=== PATIENT | female | born 1960 | race Caucasian/White ===

== ENCOUNTER 2017-10-06 14:17 | Emergency (ER) | payer OTHER ==
[~2017-10-06] VITALS: Ht 167.6 cm; Wt 61.2 kg
[~2017-10-06 14:17] MED LIST: AMLODIPINE BESY PO; ANUSOL HC-HEMOR1 SUP RC; ESCITALOPRAM10 MG PO; MULTIVITAMIN1 TAB PO
[2017-10-06 14:51] LABS: ABSOLUTE BASOPHIL COUNT 0 /CUMM (0.0-0.2); ABSOLUTE EOSINOPHIL COUNT 0.1 /CUMM (0.0-0.7); MEAN CORPUSCULAR HGB CONC 33.3 G/DL (33.0-37.0); MEAN PLATELET VOLUME 7.8 FL (7.4-10.4)
[2017-10-06 14:55] LABS: ABSOLUTE GRANULOCYTE CT 3.8 /CUMM (1.4-6.5); ABSOLUTE LYMPH COUNT 1.4 /CUMM (1.2-3.4); ABSOLUTE MONOCYTE COUNT 0.5 /CUMM (0.10-0.60); BASOPHIL % 0.2 % (0.0-2.0); EOSINOPHIL % 1.3 % (0-5); GRANULOCYTE % 65.6 % (42.2-75.2); HEMATOCRIT 42.6 % (37-47); MEAN CORPUSCULAR HGB 32.2 PG (27.0-31.0); MEAN CORPUSCULAR VOLUME 96.9 FL (81.0-99.0); PLATELET COUNT 318 /CUMM (130-400); RBC DISTRIBUTION WIDTH 14.1 % (11.5-14.5); RED BLOOD CELL CT 4.39 /CUMM (4.20-5.40); WHITE BLOOD CELL COUNT 5.7 /CUMM (4.8-10.8)
--- NOTE | 2017-10-06 18:44 | ED GI/GU/ABDOMINAL COMPLAINT ---
History of Present Illness General Chief Complaint: Dyspnea (COPD, CHF, Other) Stated Complaint: BIAB SOB, ETOH Source: patient, old records Exam Limitations: no limitations Vital Signs & Intake/Output Vital Signs & Intake/Output Vital Signs Date Time Temp Pulse Resp B/P B/P Pulse O2 O2 Flow FiO2 Mean Ox Delivery Rate 10/06 2138 98.5 89 18 131/84 97 Room Air Room Air 10/06 2020 98.5 92 18 136/82 97 Room Air 10/06 1441 98.2 102 16 132/88 95 Room Air ED Intake and Output 10/07 0000 10/06 1200 Intake Total 1000 Output Total Balance 1000 Intake, IV 1000 Patient 135 lb Weight Weight Estimated Measurement Method Allergies Coded Allergies: NO KNOWN ALLERGIES (10/06/17) Reconcile Medications AMLODIPINE BESYLATE/BENAZEPRIL (Amlodipine-Benazepril 5-10 MG) 5 MG-10 MG CAPSULE 1 CAP PO DAILY BP (Reported) Anusol Hc (Anusol Hc-Hemorrhoidal Hc Supp) 1 SUP SUP 1 SUP RC BID PRN hemorrhoids Escitalopram Oxalate 10 MG TABLET 1 TAB PO DAILY MENTAL HEALTH (Reported) Multivitamin (Multiple Vitamins) 1 EACH TABLET 1 TAB PO DAILY SUPPLEMENT ( Reported) Triage Note: PT WAS BIBA FROM HOME AFTER BEING FOUND ON THE FLOOR. PT BEGAN WHEEZING FROM HER THROAT SPOUSE CALLED 911. PT HAD A FEW COCKTAILES, PT DENIES DRINKING TODAY. PT TALKING IN FULL SENTENCES NO NO RESP. DISTRESS NOTED WHILE IN TRIAGE. PT DENIES ANY INJURY FROM FALL. PT HAS BEEN OUT OF WORK FOR 2 DAYS FOR STOMACH AND BACK PAIN . Triage Nurses Notes Reviewed? yes ? n Is pt currently ? No Onset: Abrupt Duration: day(s): (1), better, resolved prior to arrival Timing: recent history Quality/Severity: aching, moderate, sharpness Severity Numbers: 5 Location: epigastric Radiation: back Activities at Onset: none Prior Abdominal Problems: similar symptoms No Modifying Factors: none Associated Symptoms: denies HPI: 57-year-old female history of alcohol abuse hypertension presents with her family after she was found on the ground after a mechanical fall. The patient admits to drinking wine last night into today. On arrival she appears intoxicated. She denies any complaints from the fall. She denies prodromal dizziness light tenderness prior to the fall. Her only complaint in triage where she is having epigastric pain radiating into her back which she has had episodes of over the past several weeks. She denies any associated chest pain shortness of breath cough. Her states that she was wheezing in her throat when they found her on the ground however is not had any episodes since. She denies any drug use. She denies any other drugs. Her only abdominal surgeries is sig For a ovarian cyst removal No nausea no vomiting no diarrhea no black or bloody stools. Symptoms are not worse with drinking. She denies history of severe alcohol withdrawal, DTs hallucinations in the past she states she is not here for detox (Jose Miguel Melgar) Past History Travel History Traveled to [place] past 21 day No Medical History Any Pertinent Medical History? see below for history Cardiovascular: hypertension Psychiatric: alcohol dependence Surgical History Surgical History: appendectomy, cholecystectomy, hysterectomy, 3 DISCS REMOVED FROM NECK Psychosocial History Who do you live with Significant Other What is your primary language Cypriot Tobacco Use: Current Daily Use Daily Tobacco Use Amount/Type: => 5 Cigarettes daily ETOH Use: alcoholic Illicit Drug Use: denies illicit drug use Family History Hx Contributory? No (Jose Miguel Melgar) Review of Systems Review of Systems Constitutional: Reports: see HPI. Comments Review of systems: See HPI, All other systems negative. Constitutional, no chills no fever, HEENT: no sore throat no congestion Cardiovascular: No chest pain Skin: no rashes, no change in skin Respiratory: No dyspnea no cough no sputum GI: nausea no vomiting, no diarrhea Muscle skeletal: No joint pain, no back pain, no neck pain, Neurologic: , no headache Psych: No stress Heme/endocrine: No bruising Immunology: No lymphadenopathy (Jose Miguel Melgar) Physical Exam Physical Exam General Appearance: well developed/nourished, alert, awake Gastrointestinal: soft, non-tender Comments: Well-developed well-nourished person in no acute distress HEENT: Normal EENT exam; PERRL, EOMI, HEAD is atraumatic. moist mucous membranes. Neck: Supple, normal range of motion Back: Nontender, no CVA tenderness. Full range of motion Cardiovascular: Regular rate and rhythms no murmurs rub Respiratory: Chest nontender.There were no bony deformities, no asymmetry. No respiratory distress. Patient speaking in full complete sentences. Breath sounds clear to auscultation bilaterally: NO W/R/R Abdomen: Soft, nontender nondistended, no appreciable organomegaly. Normal bowel sounds. No rebound/guarding, No appreciable enlargement of the abdominal aorta, No ascites. Extremity: No edema, full range of motion of extremities Neuro: Alert oriented x3, motor sensory normal, There were no obvious focal neurologic abnormalities. Skin: No appreciable rash on exposed skin, skin is warm and dry. Psych: Mood and affect is normal, memory and judgment is normal. Core Measures ACS in differential dx? Yes Sepsis Present: No Sepsis Focused Exam Completed? No (Mandi TURNER,Jose Miguel) Progress Differential Diagnosis: appendicitis, biliary colic, bowel obstruction, colon cancer, inflamm bowel dis, pancreatitis, peptic ulcer, PUD/GERD, perforated viscous, SBO Plan of Care: Orders Procedure Date/time Status EKG 10/06 2006 Active Add-on Test (ER Only) 10/06 184 Active Add-on Test (ER Only) 10/06 144 Active TROPONIN LEVEL 10/06 1443 Complete LIPASE 10/06 1443 Complete AMYLASE 10/06 1443 Complete ETHANOL 10/06 1442 Complete COMPREHENSIVE METABOLIC PANEL 10/06 1442 Complete CBC WITHOUT DIFFERENTIAL 10/06 1442 Complete Laboratory Tests 10/06/17 1443: Anion Gap 19 H, Estimated GFR > 60, BUN/Creatinine Ratio 26.0 H, Glucose 104 H, Calcium 10.2, Total Bilirubin 0.7, AST 42 H, ALT 36, Alkaline Phosphatase 54 , Troponin I < 0.01, Total Protein 7.7, Albumin 5.0, Globulin 2.7, Albumin/ Globulin Ratio 1.9, Amylase 147 H, Lipase 383 H, CBC w Diff NO MAN DIFF REQ, RBC 4.39, MCV 96.9, MCH 32.2 H, MCHC 33.3, RDW 14.1, MPV 7.8, Gran % 65.6, Lymphocytes % 24.9, Monocytes % 8.0, Eosinophils % 1.3, Basophils % 0.2, Absolute Granulocytes 3.8, Absolute Lymphocytes 1.4, Absolute Monocytes 0.5, Absolute Eosinophils 0.1, Absolute Basophils 0, Serum Alcohol 363.0 Patient denies any complaints including pain nausea at this time I discussed with her and her family her lab results, the patient is declining wishing to go through detox she denies history of severe alcohol withdrawal, DTs in the past discussed with them given her elevated lipase and history of epigastric pain we' ll get a CAT scan to rule out pancreatitis which are with plan 10/06/2017 9:47:41 PM I discussed with the patient her CAT scan findings incidental findings on CT she is scheduled to follow up with GI Dr. Lugo. Return precautions were discussed at late patient is been asymptomatic here denies any pain. She again is declining alcohol detox. Discussed with her hard alcohol abuse. Her will take her home. Return precautions were discussed at length they feel comfortable with plan Diagnostic Imaging: Viewed by Me: CT Scan. Discussed w/RAD: CT Scan. Radiology Impression: PATIENT: JUDY VALLADARES PRESENT AGE: 57 PATIENT ACCOUNT NO: [id number] : 56 LOCATION: [facility] ORDERING PHYSICIAN: Jose Miguel TURNER SERVICE DATE: 10/06/17 EXAM TYPE: CAT - CT HEAD WO IV CONTRAST EXAMINATION: CT HEAD WITHOUT CONTRAST CLINICAL INFORMATION: Fall. Rule out intracranial hemorrhage. COMPARISON: Head CT from . TECHNIQUE: Contiguous axial imaging was performed from the skull base to vertex without intravenous administration of contrast. DLP: 647.9 mGy-cm FINDINGS: There is no evidence of acute intracranial hemorrhage or territorial infarction. No abnormal mass effect or midline shift is seen. Flores to white matter differentiation is well preserved. No extra-axial fluid collections are identified. The ventricles are normal in size. Mild chronic white matter microangiopathic changes are noted. There is generalized parenchymal volume loss greater than expected for patient age. The osseous structures and soft tissues are normal. The mastoid air cells and visualized portions of the paranasal sinuses are well aerated. IMPRESSION: No acute intracranial hemorrhage or territorial infarction. Mild chronic white matter microangiopathy with moderate parenchymal volume loss for patient age. DICTATED BY: Antonio Garces MD DATE/ TIME DICTATED:10/06/172040 NURSING CARE ATTENDANT:ARRON DATE/TIME TRANSCRIBED: 10/06/172040 CONFIDENTIAL, DO NOT COPY WITHOUT APPROPRIATE AUTHORIZATION. < Electronically signed in Other Vendor System> SIGNED BY: Antonio Garces MD 10/06/172045, PATIENT: JUDY VALLADARES PRESENT AGE: 57 PATIENT ACCOUNT NO: [id number] : 56 LOCATION: [facility] ORDERING PHYSICIAN: Jose Miguel TURNER SERVICE DATE: 10/06/17 EXAM TYPE: CAT - CT ABD & PELVIS W IV CONTRAST EXAMINATION: CT ABDOMEN AND PELVIS WITH CONTRAST CLINICAL INFORMATION: 57-year-old female patient with EtOH abuse. Abdominal pain in the epigastrium. COMPARISON: None TECHNIQUE: Multidetector volumetric imaging was performed of the abdomen and pelvis following IV administration of 95 mL of Optiray 320 intravenous contrast. Sagittal and coronal reformatted images were obtained on the technologist's workstation. DLP: 243 mGy-cm FINDINGS: LUNG BASES: The visualized lung bases are unremarkable. LIVER, GALLBLADDER, AND BILIARY TREE: The liver is normal in size, shape, demonstrating diffuse fatty infiltration. No focal hepatic lesion or biliary ductal dilatation is present. The gallbladder has been surgically removed. PANCREAS: No focal swelling. No sign of peripancreatic effusions. SPLEEN: Unremarkable. ADRENAL GLANDS: Unremarkable. KIDNEYS AND URETERS: The kidneys are normal in size, shape, and attenuation. No hydronephrosis. No perinephric stranding. A nonobstructing punctate calculus is located in the lower pole of the right kidney. BLADDER: Unremarkable. GASTROINTESTINAL TRACT: The small and large bowel are unremarkable. The appendix may have been removed. An unusual calcified enterolith is located in the cecum. No free air or free fluid. ABDOMINAL WALL: No significant hernia is appreciated. LYMPH NODES: Normal. VASCULAR: Unremarkable. PELVIC VISCERA: Uterus has been removed. OSSEOUS STRUCTURES: Severe disc disease is seen at L5-S1. IMPRESSION: 1. No anatomic signs of pancreatitis. 2. Fatty liver. 3. Nonobstructing calculus lower pole right kidney. 4. Unusual enterolith the cecum. DICTATED BY: Alphonse Monsalve MD DATE/TIME DICTATED:10/06/172041 NURSING CARE ATTENDANT:ARRON DATE/TIME TRANSCRIBED:10/06/172041 CONFIDENTIAL, DO NOT COPY WITHOUT APPROPRIATE AUTHORIZATION. <Electronically signed in Other Vendor System> SIGNED BY: Alphonse Monsalve MD 10/06/172058 Initial ED EKG: normal intervals, normal p-waves, normal QRS complex, stach 100 (Mandi TURNER,Jose Miguel) Departure Departure Time of Disposition: 2116 Disposition: HOME OR SELF CARE Condition: Stable Clinical Impression Primary Impression: Abdominal pain Referrals: Kodi CARIAS,Jim Mayers MD,Johnny Kent (PCP/Family) Additional Instructions: Follow-up with key punch teacher urologist Dr. Lguo. Atkins diet and abstain from alcohol use. Return anytime sooner with any concerns. Departure Forms: Customer Survey General Discharge Information (Mandi TURNER,Jose Miguel) PA/EXAM PROCTOR Co-Sign Statement Statement: ED Attending supervision documentation- [] I saw and evaluated the patient. I have also reviewed all the pertinent lab results and diagnostic results. I agree with the findings and the plan of care as documented in the PA's/EXAM PROCTOR's documentation. [X] I have reviewed the ED Record and agree with the PA's/EXAM PROCTOR's documentation. [] Additions or exceptions (if any) to the PAs/EXAM PROCTOR's note and plan are summarized below: [] (Julian Estrada DO
--- NOTE | 2017-10-06 20:46 | CT SCAN REPORT ---
EXAMINATION: CT HEAD WITHOUT CONTRAST CLINICAL INFORMATION: Fall. Rule out intracranial hemorrhage. COMPARISON: Head CT from 10/05/2009. TECHNIQUE: Contiguous axial imaging was performed from the skull base to vertex without intravenous administration of contrast. DLP: 647.9 mGy-cm FINDINGS: There is no evidence of acute intracranial hemorrhage or territorial infarction. No abnormal mass effect or midline shift is seen. Flores to white matter differentiation is well preserved. No extra-axial fluid collections are identified. The ventricles are normal in size. Mild chronic white matter microangiopathic changes are noted. There is generalized parenchymal volume loss greater than expected for patient age. The osseous structures and soft tissues are normal. The mastoid air cells and visualized portions of the paranasal sinuses are well aerated. IMPRESSION: No acute intracranial hemorrhage or territorial infarction. Mild chronic white matter microangiopathy with moderate parenchymal volume loss for patient age.
--- NOTE | 2017-10-06 20:59 | CT SCAN REPORT ---
EXAMINATION: CT ABDOMEN AND PELVIS WITH CONTRAST CLINICAL INFORMATION: 57-year-old female patient with EtOH abuse. Abdominal pain in the epigastrium. COMPARISON: None TECHNIQUE: Multidetector volumetric imaging was performed of the abdomen and pelvis following IV administration of 95 mL of Optiray 320 intravenous contrast. Sagittal and coronal reformatted images were obtained on the technologist's workstation. DLP: 243 mGy-cm FINDINGS: LUNG BASES: The visualized lung bases are unremarkable. LIVER, GALLBLADDER, AND BILIARY TREE: The liver is normal in size, shape, demonstrating diffuse fatty infiltration. No focal hepatic lesion or biliary ductal dilatation is present. The gallbladder has been surgically removed. PANCREAS: No focal swelling. No sign of peripancreatic effusions. SPLEEN: Unremarkable. ADRENAL GLANDS: Unremarkable. KIDNEYS AND URETERS: The kidneys are normal in size, shape, and attenuation. No hydronephrosis. No perinephric stranding. A nonobstructing punctate calculus is located in the lower pole of the right kidney. BLADDER: Unremarkable. GASTROINTESTINAL TRACT: The small and large bowel are unremarkable. The appendix may have been removed. An unusual calcified enterolith is located in the cecum. No free air or free fluid. ABDOMINAL WALL: No significant hernia is appreciated. LYMPH NODES: Normal. VASCULAR: Unremarkable. PELVIC VISCERA: Uterus has been removed. OSSEOUS STRUCTURES: Severe disc disease is seen at L5-S1. IMPRESSION: 1. No anatomic signs of pancreatitis. 2. Fatty liver. 3. Nonobstructing calculus lower pole right kidney. 4. Unusual enterolith the cecum.
[2017-10-06 21:39] VITALS: BP 131/84
== END 2017-10-06 21:40 ==
LOC: ERH 14:17
PROVIDERS: Emergency Medicine
DX: R10.13 Epigastric pain (principal)
CPT/HCPCS: 74177; 96360; G0480

== ENCOUNTER 2018-02-06 20:44 | Emergency (ER) | payer OTHER ==
[~2018-02-06] VITALS: Ht 167.6 cm; Wt 57.2 kg
--- NOTE | 2018-02-06 21:10 | ED GENERAL ADULT ---
History of Present Illness General Chief Complaint: Facial or Head Injury Stated Complaint: LAC TO HEAD S/P FALL OVERRAILING, +ETOH Source: patient Exam Limitations: no limitations Vital Signs & Intake/Output Vital Signs & Intake/Output Vital Signs Date Time Temp Pulse Resp B/P B/P Pulse O2 O2 Flow FiO2 Mean Ox Delivery Rate 02/06 2300 98.4 110 16 116/80 95 Room Air 02/062 Room Air 02/06 2059 97.4 127 18 132/91 97 Room Air Allergies Coded Allergies: NO KNOWN ALLERGIES (10/06/17) Reconcile Medications AMLODIPINE BESYLATE/BENAZEPRIL (Amlodipine-Benazepril 5-10 MG) 5 MG-10 MG CAPSULE 1 CAP PO DAILY BP (Reported) Anusol Hc (Anusol Hc-Hemorrhoidal Hc Supp) 1 SUP SUP 1 SUP RC BID PRN hemorrhoids Escitalopram Oxalate 10 MG TABLET 1 TAB PO DAILY MENTAL HEALTH (Reported) Multivitamin (Multiple Vitamins) 1 EACH TABLET 1 TAB PO DAILY SUPPLEMENT ( Reported) Triage Note: PT FROM HOME C/O LAC TO RIGHT FOREHEAD 30 MINS PRIOR FROM FALL, HEAVY ETOH USE. PT ARRIVED WITH TO ER AFTER FALLING OFF PORCH STEPS AND HITTING HEAD, +HEADSTRIKE, UNKNOWN LOC. PT SLURRING SPEECH. HR ELEVATED 127. Triage Nurses Notes Reviewed? yes Onset: Abrupt Duration: hour(s): Timing: recent history HPI: 02/06/18 57-year-old female presents to the emergency department status post fall. The patient drank some wine and then fell over a railing and struck her head. She has a half inch irregular laceration to her right forehead. She also complains of a headache. She denies chest pain, abdominal pain, or other complaints. Past History Travel History Traveled to [place] past 21 day No Medical History Any Pertinent Medical History? see below for history Cardiovascular: hypertension Psychiatric: alcohol dependence Surgical History Surgical History: appendectomy, cholecystectomy, hysterectomy, 3 DISCS REMOVED FROM NECK Psychosocial History Who do you live with Significant Other What is your primary language Malay Tobacco Use: Current Daily Use Daily Tobacco Use Amount/Type: => 5 Cigarettes daily ETOH Use: alcoholic Illicit Drug Use: denies illicit drug use Family History Hx Contributory? No Review of Systems Review of Systems Constitutional: Denies: fever. EENTM: Denies: visual changes. Respiratory: Denies: short of breath. Cardiovascular: Denies: chest pain. GI: Denies: abdominal pain. Genitourinary: Reports: no symptoms. Musculoskeletal: Reports: no symptoms. Skin: Reports: see HPI. Neurological/Psychological: Reports: headache. Hematologic/Endocrine: Reports: bruising, bleeding. Immunologic/Allergic: Reports: no symptoms. Physical Exam Physical Exam General Appearance: well developed/nourished, alert Head: active bleeding Eyes: Bilateral: normal appearance, PERRL, EOMI. Ears, Nose, Throat: normal pharynx, normal ENT inspection Neck: normal inspection, supple, full range of motion Respiratory: normal breath sounds, chest non-tender, no respiratory distress Cardiovascular: regular rate/rhythm Peripheral Pulses: 4+ radial (R), 4+ radial (L) Gastrointestinal: soft, non-tender Back: normal inspection Extremities: normal inspection, normal range of motion Neurologic/Psych: no motor/sensory deficits, awake, alert, oriented x 3 Skin: intact, normal color, warm/dry Core Measures ACS in differential dx? No CVA/TIA Diagnosis: No Sepsis Present: No Sepsis Focused Exam Completed? No Progress Differential Diagnoses I considered the following diagnoses in my evaluation of the patient: [ Intracranial bleed, laceration, foreign body, neck injury] Plan of Care: Current Medications Sig/Soledad Start time Last Medication Dose Stop Time Status Admin Cephalexin 500 MG ONCE ONE 02/06 2300 UNVr 02/06 (Keflex 500MG Cap) 02/06 2301 2301 Initial ED EKG: none Departure Departure Disposition: HOME OR SELF CARE Condition: Stable Clinical Impression Primary Impression: Head injury Secondary Impressions: Laceration Referrals: Talib CARIAS,Johnny Kent (PCP/Family) Departure Forms: Customer Survey General Discharge Information Comments PATIENT: JUDY VALLADARES PRESENT AGE: 57 PATIENT ACCOUNT NO: [id number] : 56 LOCATION: [facility] ORDERING PHYSICIAN: Julian Estrada DO SERVICE DATE: 02/06/18 EXAM TYPE: CAT - CT CERV SPINE WO IV CONTRAST; CT HEAD WO IV CONTRAST EXAMINATIONS: CT HEAD WITHOUT CONTRAST AND CT CERVICAL SPINE WITHOUT CONTRAST CLINICAL INFORMATION: Fall, pain COMPARISON: CT 10/06/2017, cervical spine films 05/21/2010 TECHNIQUE: Contiguous helical images of the brain were obtained without IV contrast. Contiguous helical images of the cervical spine were obtained without IV contrast. Multiplanar reconstructions were performed. DLP: 1348 mGy-cm FINDINGS: The study is mildly limited by patient motion. There are no pathologic extra-axial fluid collections. The lateral, third, fourth ventricles are mildly prominent and concordant with the appearance of the sulci. There is no evidence for acute intraparenchymal hemorrhage or infarct. There is moderate low-attenuation within the periventricular and subcortical white matter. There is neither mass nor mass effect. There is no shift of midline structures. The paranasal sinuses and mastoid air cells are clear. There are no osseous lesions. There is no prevertebral soft tissue swelling. Extensive degenerative changes of the cervical spine are identified including osseous fusion of the C3 and C4 vertebral bodies as well as the C5 and C6 vertebral bodies. There is relative loss of the normal intervertebral disc space at the C6-C7 level. There is mild narrowing at the C7-T1 level in addition to retrolisthesis measuring approximately 2 mm. Extensive biapical pleural-parenchymal scarring. IMPRESSION: 1. No acute intracranial hemorrhage. 2. No interval change in moderate chronic small vessel ischemic change and cerebral atrophy greater than expected for age compared to the prior CT. 3. Extensive cervical spondylosis including osseous fusion of the C3 and C4 levels as well as the C5 and C6 levels. The retrolisthesis present at the C7-T1 is most likely degenerative. Review of the 2009 examination suggests no significant interval change in the appearance of the cervical spine. DICTATED BY: Judy Gillespie MD DATE/TIME DICTATED:02/06/182149 MAINTENANCE WORKER SWIMMING POOL:ARRON DATE/TIME TRANSCRIBED:02/06/182149 CONFIDENTIAL, DO NOT COPY WITHOUT APPROPRIATE AUTHORIZATION. <Electronically signed in Other Vendor System> SIGNED BY: Judy Gillespie MD 02/06/182201 Procedure Under sterile technique and after informed consent the irregular half inch laceration was irrigated vigorously and closed using 1% lidocaine, 1 4.0 gut suture and 3 6-0 nylon sutures. Bacitracin was applied and the patient tolerated the procedure well. Critical Care Note Critical Care Note Critical Care Time: non-applicable
--- NOTE | 2018-02-06 22:02 | CT SCAN REPORT ---
EXAMINATIONS: CT HEAD WITHOUT CONTRAST AND CT CERVICAL SPINE WITHOUT CONTRAST CLINICAL INFORMATION: Fall, pain COMPARISON: CT 10/06/2017, cervical spine films 05/21/2010 TECHNIQUE: Contiguous helical images of the brain were obtained without IV contrast. Contiguous helical images of the cervical spine were obtained without IV contrast. Multiplanar reconstructions were performed. DLP: 1348 mGy-cm FINDINGS: The study is mildly limited by patient motion. There are no pathologic extra-axial fluid collections. The lateral, third, fourth ventricles are mildly prominent and concordant with the appearance of the sulci. There is no evidence for acute intraparenchymal hemorrhage or infarct. There is moderate low-attenuation within the periventricular and subcortical white matter. There is neither mass nor mass effect. There is no shift of midline structures. The paranasal sinuses and mastoid air cells are clear. There are no osseous lesions. There is no prevertebral soft tissue swelling. Extensive degenerative changes of the cervical spine are identified including osseous fusion of the C3 and C4 vertebral bodies as well as the C5 and C6 vertebral bodies. There is relative loss of the normal intervertebral disc space at the C6-C7 level. There is mild narrowing at the C7-T1 level in addition to retrolisthesis measuring approximately 2 mm. Extensive biapical pleural-parenchymal scarring. IMPRESSION: 1. No acute intracranial hemorrhage. 2. No interval change in moderate chronic small vessel ischemic change and cerebral atrophy greater than expected for age compared to the prior CT. 3. Extensive cervical spondylosis including osseous fusion of the C3 and C4 levels as well as the C5 and C6 levels. The retrolisthesis present at the C7-T1 is most likely degenerative. Review of the 2009 examination suggests no significant interval change in the appearance of the cervical spine.
[2018-02-06 23:00] VITALS: BP 116/80
== END 2018-02-06 23:09 ==
LOC: ERH 20:44
DX: S01.81XA Laceration without foreign body of other part of head, initial encounter (principal); S09.90XA Unspecified injury of head, initial encounter; W19.XXXA Unspecified fall, initial encounter; Y92.9 Unspecified place or not applicable; Y93.9 Activity, unspecified
CPT/HCPCS: 90471; 90714; J2001